=== PATIENT | female | born 1945 | race Caucasian/White ===

== ENCOUNTER → 2017-11-05 | Outpatient (CLI) | payer OTHER | LOC: BMCIMAGING 11:10 | PROVIDERS: ATTEND Internal Medicine | DX: M85.852 Other specified disorders of bone density and structure, left thigh (principal) ==

== ENCOUNTER 2018-06-07 11:40 | Day surgery (SDC) | payer OTHER ==
[2018-06-07] MEDS ORDERED: LR 1,000 ML IV ONE (11:52)
[2018-06-07] MEDS ORDERED: LIDOCAINE 1% 2 ML INJ ID PRN (11:52)
[2018-06-07] MEDS ORDERED: BACITRACIN ZINC 14.2 GM OINTTUBE TP ONE ×2 (12:28→12:54)
[2018-06-07] MEDS ORDERED: OXYMETAZOLINE 30 ML NASAL SPRAY ONE ×2 (12:28→12:54)
[2018-06-07] MEDS ORDERED: SURGIFLO MATRIX KIT WITH THROMBIN 8 ML TP ONE (12:28)
[2018-06-07] MEDS ORDERED: LIDOCAINE 1% 300 MG/30 ML SDV ONE (12:29)
[2018-06-07] MEDS ORDERED: EPINEPHrine 1 MG/ML INJ ONE (12:30)
--- NOTE | 2018-06-07 12:52 | PDANEPAE ---
ANE Past Medical History - Cardiovascular History Hx Hypertension: No Hx Arrhythmias: No Hx Chest Pain: No Hx Coronary Artery / Peripheral Vascular Disease: No Hx CHF / Valvular Disease: No Hx Palpitations: No - Pulmonary History Hx COPD: No Hx Asthma/Reactive Airway Disease: No Hx Recent Upper Respiratory Infection: No Hx Oxygen in Use at Home: No Hx Sleep Apnea: No Sleep Apnea Screening Result - Last Documented: Negative - Neurologic History Hx Cerebrovascular Accident: No Hx Seizures: No Hx Dementia: No - Endocrine History Hx Diabetes: No - Renal History Hx Renal Disorders: No - Liver History Hx Hepatic Disorders: No - Neurological & Psychiatric Hx Hx Neurological and Psychiatric Disorders: No - Cancer History Hx Cancer: Yes Cancer History Comment: breast cancer 1988- one mastectomy then 2 yrs later she had the other side done prophylactically- with chemo and radiation - Congenital Disorder History Hx Congenital Disorders: No - GI History Hx Gastrointestinal Disorders: No - Other Health History Other Health History: wears glasses for reading and night driving as needed. restricted left arm d/t lymphedema - Chronic Pain History Chronic Pain: No - Surgical History Prior Surgeries: mastectomy in 1988 then other side done in 1990 with reconstruction. hysterectomy. tonsillectomy ANE Review of Systems Review of Systems: - Exercise capacity METS (RN): 4 METS ANE Patient History - Allergies Allergies/Adverse Reactions: adhesive Allergy (Verified 05/28/18 12:42) a lot of redness, not really an allergy linezolid [From Zyvox] Allergy (Verified 05/28/18 12:42) break out in rash sulfamethoxazole [From Bactrim] Allergy (Verified 05/28/18 12:42) terrible rash trimethoprim [From Bactrim] Allergy (Verified 05/28/18 12:42) terrible rash - Home Medications Home Medications: Aspirin 81mg (*) 05/28/18 [Last Taken 05/31/18] Dicloxacillin Sodium 05/28/18 [Last Taken 05/24/18] Herbals/Supplements -Info Only 05/28/18 [Last Taken 05/31/18] - NPO status NPO Since - Liquids (Date): 06/07/18 NPO Since - Liquids (Time): 10:15 NPO Since - Solids (Date): 06/06/18 NPO Since - Solids (Time): 17:30 - Smoking Hx Smoking Status: Never smoked - Family Anes Hx Family Hx Anesthesia Complications: none ANE Labs/Vital Signs - Vital Signs Blood Pressure: 108/77 Heart Rate: 59 Respiratory Rate: 15 O2 Sat (%): 96 Height: 163.83 cm Weight: 51.71 kg ANE Physical Exam - Airway Mallampati Score: Class 1 - ASA Status ASA Status: II ANE Anesthesia Plan Anesthesia Plan: general endotracheal anesthesia
--- NOTE | 2018-06-07 12:54 | PDGENHP ---
History & Physical Chief Complaint: Left maxillary sinusitis History of Present Illness: CT findings of Left amxillary sinusitis Pertinent Past, Social, Family History: Reviewed Relevant Physical Exam: A&O, NAD. HEENT unremarkable. CTA. RR Cardiorespiratory Assessment: A/P ready for FESS, Left max antrostomy with removal of FB
[2018-06-07] MEDS ORDERED: LIDO/EPI 1% **for epidural** 30 ML SDV ONE (12:55)
[2018-06-07] MEDS ORDERED: fentaNYL 100 MCG/2 ML INJ ONE (12:58)
[2018-06-07] MEDS ORDERED: MIDAZOLAM 2 MG/2 ML VIAL ONE (12:58)
[2018-06-07] MEDS ORDERED: ROCURONIUM 50 MG/5 ML VIAL ONE (12:59)
[2018-06-07] MEDS ORDERED: PROPOFOL 200 MG/20 ML VIAL ONE (12:59)
[2018-06-07] MEDS ORDERED: ONDANSETRON 4 MG/2 ML VIAL ONE (12:59)
[2018-06-07] MEDS ORDERED: METOCLOPRAMIDE 10 MG/2 ML VIAL ONE (12:59)
[2018-06-07] MEDS ORDERED: PHENYLEPHRINE HCL 100 MCG/ML SYR ONE (13:52)
[2018-06-07] MEDS ORDERED: fentaNYL 100 MCG/2 ML INJ IVP PRN (14:51)
[2018-06-07] MEDS ORDERED: HYDROmorphONE/DILAUDID 1 MG/ML INJ IVP PRN (14:51)
[2018-06-07] MEDS ORDERED: LR 500 ML IV PRN (14:51)
[2018-06-07] MEDS ORDERED: DEXAMETHASONE 4 MG/ML VIAL IVP PRN (14:51)
[2018-06-07] MEDS ORDERED: NALOXONE HCL 0.4 MG/ML INJ IVP PRN (14:51)
--- NOTE | 2018-06-07 14:52 | POSTANESTH ---
Post Anesthetic Evaluation Cardiovascular Status: Normal, Stable Respiratory Status: Normal, Stable Level of Consciousness/Mental Status: Can Participate in Eval Pain Control: Adequate, Prn Tx Ordered Nausea/Vomiting Control: Adequate, Prn Tx Ordered Complications Possibly Related to Anesthesia: None Noted
--- NOTE | 2018-06-07 14:53 | POSTOPPROG ---
Post Op Note Date of Operation: 06/07/18 Surgeon: Champ Ortiz Anesthesia: GET(General Endotracheal) Pre-op Diagnosis: L max sinusitis Post-op Diagnosis: L max sinusitis Indication: L max sinusitis Procedure: L max antrostomy Findings: L max sinusitis Inf/Abcess present in the surg proc area at time of surgery?: No Depth: Deep Incisional (Fascial) EBL: Minimal Specimen(s): L sinonasal contents
[2018-06-07] MEDS ORDERED: HYDROCOD/APAP 7.5/325 IN 15ML UDCUP PO PRN (14:55)
[2018-06-07 16:03] VITALS: BP 135/78
--- NOTE | 2018-06-26 16:24 | GOP ---
[f rep st] OPERATIVE REPORT DATE OF OPERATION: 06/07/2018 SURGEON: Champ Ortiz MD ANESTHESIA: General. PREOPERATIVE DIAGNOSIS: Left chronic maxillary sinusitis. POSTOPERATIVE DIAGNOSIS: Left chronic maxillary sinusitis. PROCEDURE PERFORMED: Left maxillary antrostomy with tissue removal. FINDINGS: Left maxillary sinus with polypoid/inflammatory appearing tissue. SPECIMENS: Left maxillary sinus contents. ESTIMATED BLOOD LOSS: Minimal. INDICATIONS: Patient was seen in outpatient clinic and following imaging was found to have significa nt chronic left maxillary sinusitis. Given her history and findings, she was determined to be an kishore ropriate candidate for the above-stated procedure. The risks, benefits, alternatives to the procedur e were explained at length to the patient who stated she understood and agreed. DESCRIPTION OF PROCEDURE: Patient was brought to the operating room by Anesthesiology Team and place d on the operating table. Once the appropriate level of anesthesia was achieved, the inferior turbin ates and maxillary line on the left were injected with 1% lidocaine with 1:100,000 epinephrine. Afri n-soaked pledgets were then placed in the left nasal cavity. The patient was then prepped and preppe d and draped in usual fashion. Following that, the [employer] system was registered with the patient and there was good con cordance at the start of and throughout the case. The pledgets were removed and a 0 degree endoscope was used to visualize the left nasal cavity. A [place] elevator and straight going through cut were u sed to complete an uncinectomy. A combination of backbiter and straight going through cut were used to widen the maxillary antrostomy. A 45 degree endoscope was then placed. A 40 degree microdebrider was used to access the contents of the maxillary sinus and remove them. These were filtered for desirae ing specimens. Some of the anterior tissues were unable to be reached and a Giraffe forceps was then used to access the anterior inferior portions of the maxillary sinus. Using a 70 degree scope, it w as confirmed that the maxillary sinus was clear. With a curved suction, the sinus was irrigated with copious normal saline and suctioned out. There was no evidence of foreign body within the sinus at this point. There was good mucosal coverage within the maxillary sinus. The sinus was irrigated 1 m ore time and the nasal cavity and maxillary sinus were then suctioned out. Mild Bovie suction electr ocautery was used at the posterior aspect of the antrostomy for hemostasis. Afrin-soaked pledgets we re placed for hemostasis. Once they were removed, no bleeding was found. The patient tolerated the procedure well, was extubated in the operating room prior to being transferred in good condition to [facility] postanesthesia care unit. /[id number]/MODL
== END 2018-06-07 16:10 | disposition home or self-care (01) ==
LOC: FSGY 11:40
PROVIDERS: ATTEND Otolaryngology
PROC: 09BR4ZZ Excision of Left Maxillary Sinus, Percutaneous Endoscopic Approach (ICD-10-PCS; principal; 2018-06-07 13:15)
DX: J01.01 Acute recurrent maxillary sinusitis (principal); Z85.3 Personal history of malignant neoplasm of breast; Z90.13 Acquired absence of bilateral breasts and nipples
CPT/HCPCS: J0171; J2250; J2370; J2405; J2704; J2765; J3010

== ENCOUNTER 2019-01-06 00:17 | Emergency (ER) | payer OTHER ==
[2019-01-06] MEDS ORDERED: IBUPROFEN 200 MG TAB PO ONE (01:13)
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
[2019-01-06 02:37] VITALS: BP 118/74
== END 2019-01-06 02:36 | disposition home or self-care (01) ==
DX: S93.402A Sprain of unspecified ligament of left ankle, initial encounter (principal); V03.10XA Pedestrian on foot injured in collision with car, pick-up truck or van in traffic accident, initial encounter; Y92.410 Unspecified street and highway as the place of occurrence of the external cause